=== PATIENT | female | born 1950 | race Hispanic/Latino ===

== ENCOUNTER 2019-03-30 18:00 | Emergency (ER) | payer MEDICARE ==
[~2019-03-30] VITALS: Ht 160 cm; Wt 104.5 kg
[2019-03-30 18:01] VITALS: BP 148/72
--- NOTE | 2019-03-30 19:51 | REPVR ---
EXAM: US Duplex Left Lower Extremity Veins, Limited EXAM DATE/TIME: 03/30/2019 6:58 PM CLINICAL HISTORY: 68 years old, female; Pain; Leg, lower; Left; Additional info: Pain left calf, behind left knee TECHNIQUE: Imaging protocol: Real-time Duplex ultrasound of the Left Lower Extremity with 2-D collazo scale, color Doppler flow and spectral waveform analysis. Limited exam focused on the left lower extremity veins. COMPARISON: No relevant prior studies available. FINDINGS: Left deep veins: Unremarkable. The common femoral, femoral, proximal profunda femoral and popliteal veins are patent without thrombus. Normal Doppler waveforms. Normal compressibility and/or augmentation response. Left superficial veins: Unremarkable. Saphenofemoral junction is patent without thrombus. Soft tissues: Unremarkable. IMPRESSION: No acute findings. No evidence of deep vein thrombosis. Electronically signed by: Neena Layton On 03/30/2019 19:51:34 PM
[2019-03-30] MEDS ORDERED: SYNT25TA PO (20:51)
[2019-03-30] MEDS ORDERED: CARD60TA3 PO (20:51)
[2019-03-30] MEDS ORDERED: TRAM50TA2 PO ×2 (20:51→22:25)
[2019-03-30] MEDS ORDERED: HYDR12.55 PO (20:51)
[2019-03-30] MEDS ORDERED: MELO15TA28 PO ×2 (20:51→22:25)
[2019-03-30] MEDS ORDERED: PANT20TA2 PO (20:51)
[2019-03-30] MEDS ORDERED: traMADol 50 MG TAB (BULK 4 TAB ED) PO ONE (22:30)
== END 2019-03-30 23:02 | disposition home or self-care (01) ==
LOC: M ED 18:00
DX: I83.892 Varicose veins of left lower extremity with other complications (principal); I10 Essential (primary) hypertension; K21.9 Gastro-esophageal reflux disease without esophagitis; Z79.899 Other long term (current) drug therapy; Z88.1 Allergy status to other antibiotic agents; Z88.8 Allergy status to other drugs, medicaments and biological substances